=== PATIENT | female | born 2000 | race Caucasian/White ===

== ENCOUNTER → 2024-01-18 10:30 | Outpatient (REF) | payer OTHER, SELFPAY | LOC: HWRAD 10:30 | PROVIDERS: ATTENDING PHYSICIAN Nurse Practitioner Adult Health | DX: J18.9 Pneumonia, unspecified organism (principal) | CPT/HCPCS: 71046 ==

== ENCOUNTER → 2024-06-13 07:48 | Outpatient (REF) | payer OTHER, SELFPAY | LOC: HWRAD 07:48 | PROVIDERS: ATTENDING PHYSICIAN Nurse Practitioner Adult Health | DX: E88.01 Alpha-1-antitrypsin deficiency (principal); R79.89 Other specified abnormal findings of blood chemistry | CPT/HCPCS: 76700 ==

== ENCOUNTER → 2025-03-02 11:21 | Outpatient (REF) | payer BC, SELFPAY ==
[2025-03-02 12:14] LABS: Hematocrit 43.9 % (37.0-47.0); Hemoglobin 14.6 g/dL (12.0-16.0); Mean Corp Hgb Conc. 33.3 g/dL (33.0-37.0); Mean Corpuscular Volume 87.8 fL (81.0-99.0); Nucleated Red Blood Cells % 0 %; Platelet Count 295 10^3/uL (130-400); Red Cell Dist. Width 12.1 % (11.5-14.5)
[2025-03-02 13:05] LABS: HDL Cholesterol 82 mg/dl; Iron 140 ug/dl (37-170); LDL Cholesterol, Calculated 110 mg/dl; Very Low Density Lipoprotein 28 mg/dl (0-30)
[2025-03-02 13:18] LABS: Total Iron Binding Capacity 389 ug/dl (265-497)
[2025-03-02 13:22] LABS: Ferritin 71.5 ng/ml (6.24-137)
== END ==
LOC: REG 11:21
PROVIDERS: ATTENDING PHYSICIAN Hospitalist
DX: L65.9 Nonscarring hair loss, unspecified (principal); Z86.39 Personal history of other endocrine, nutritional and metabolic disease; Z00.00 Encounter for general adult medical examination without abnormal findings; E78.5 Hyperlipidemia, unspecified
CPT/HCPCS: 36415; 80061; 82728; 83540; 83550; 84443; 85025

== ENCOUNTER → 2025-03-16 11:46 | Outpatient (REF) | payer BC, SELFPAY | LOC: REG 11:46 | PROVIDERS: ATTENDING PHYSICIAN Internal Medicine Critical Care Medicine; FAMILY PHYSICIAN Hospitalist | DX: E88.01 Alpha-1-antitrypsin deficiency (principal); Z83.49 Family history of other endocrine, nutritional and metabolic diseases; R06.09 Other forms of dyspnea | CPT/HCPCS: 36415; 82103; 82104 ==